=== PATIENT | female | born 1990 ===

== ENCOUNTER 2017-10-19 22:09 | Emergency (ER) | payer MEDICAID ==
[2017-10-19 22:42] VITALS: O2SAT 100
--- NOTE | 2017-10-19 23:26 | ED PDOC ---
HPI: CCC, URI, Sore Throat Time Seen by Provider: 10/19/17 23:04 Chief Complaint (Nursing): Flu-like Symptoms Chief Complaint (Provider): flu-like symptoms History Per: Patient History/Exam Limitations: no limitations Onset/Duration Of Symptoms: Days (2) Current Symptoms Are (Timing): Still Present Associated Symptoms: Fever, Chills, Sore Throat, Myalgias, Nasal Congestion Additional History Per: Patient Additional Complaint(s): 27 y/o female presents with flu-like symptoms since yesterday. Patient reports fever, nasal congestion, sore throat, and bodyaches. Patient took two doses of Theraflu today with little improvement. Denies headache, dizziness, nausea/ vomiting, cough, chest pain, shortness of breath, palpitations, abdominal pain, recent travel. Patient works in [employer] office. Past Medical History Reviewed: Historical Data, Nursing Documentation, Vital Signs Vital Signs: Last Vital Signs Temp 100.7 F H 10/19/17 22:40 Pulse 115 H 10/19/17 22:40 Resp 16 10/19/17 22:40 BP 137/94 H 10/19/17 22:40 Pulse Ox 100 10/19/17 23:26 - Medical History PMH: Asthma - Surgical History Surgical History: No Surg Hx - Family History Family History: States: No Known Family Hx - Immunization History Hx Tetanus Toxoid Vaccination: No Hx Influenza Vaccination: No Hx Pneumococcal Vaccination: No - Home Medications Home Medications: Ambulatory Orders Medication Instructions Recorded Fluticasone Nasal [Flonase] 1 actuation NS BID #1 bottle 10/20/17 Oseltamivir [Tamiflu] 75 mg PO BID #9 cap 10/20/17 - Allergies Allergies/Adverse Reactions: Allergies Allergy/AdvReac Type Severity Reaction Status Date / Time No Known Allergies Allergy Verified 10/19/17 22:40 Review of Systems ROS Statement: Except As Marked, All Systems Reviewed And Found Negative Constitutional: Positive for: Fever, Chills, Weakness ENT: Positive for: Nose Congestion, Throat Pain Physical Exam - Reviewed Nursing Documentation Reviewed: Yes Vital Signs Reviewed: Yes - Physical Exam Appears: Positive for: Well, Non-toxic, No Acute Distress Head Exam: Positive for: ATRAUMATIC, NORMAL INSPECTION, NORMOCEPHALIC Skin: Positive for: Normal Color Eye Exam: Positive for: Normal appearance ENT: Positive for: Nasal Congestion, Pharyngeal Erythema. Negative for: Tonsillar Exudate, Tonsillar Swelling Cardiovascular/Chest: Positive for: Regular Rate, Rhythm Respiratory: Positive for: Normal Breath Sounds Gastrointestinal/Abdominal: Positive for: Normal Exam Back: Positive for: Normal Inspection Extremity: Positive for: Normal ROM Neurologic/Psych: Positive for: Alert, Oriented - ECG O2 Sat by Pulse Oximetry: 100 - Progress ED Course And Treament: flu, strep, ibuprofen Patient educated on findings, discharged with rx Tamiflu (dose given in ED), Flonase Advised Ibuprofen/Tylenol PRN fever. Fluids. Rest. Follow up PMD 2-3 days. Return precautions given. Disposition - Clinical Impression Clinical Impression: Influenza - Patient ED Disposition Is Patient to be Admitted: No Counseled Patient/Family Regarding: Studies Performed, Diagnosis, Need For Followup, Rx Given - Disposition Disposition: Routine/Home Disposition Time: 00:28 Condition: IMPROVED Prescriptions: Fluticasone Nasal [Flonase] 1 actuation NS BID #1 bottle Oseltamivir [Tamiflu] 75 mg PO BID #9 cap Instructions: Influenza (ED) Forms: [facility] (Domin[place]), [facility] ED School/Work Excuse
[2017-10-19 23:54] LABS: SQUAMOUS EPITHIAL 19 /hpf (0-5); URINE BILIRUBIN NEGATIVE (NEGATIVE); URINE BLOOD NEGATIVE (NEGATIVE); URINE CLARITY CLOUDY (Clear); URINE COLOR YELLOW (YELLOW); URINE GLUCOSE (UA) NEG (Normal); URINE LEUKOCYTE ESTERASE MOD Leu/uL (Negative); URINE NITRATE NEGATIVE (NEGATIVE); URINE PROTEIN NEGATIVE (NEGATIVE); URINE UROBILINOGEN 0.2-1.0 mg/dL (0.2-1.0)
[2017-10-20 00:41] VITALS: RESP 20
[2017-10-20 00:46] VITALS: BP 111/60; TEMP 98.3
[2017-10-20 00:49] VITALS: PULSE 96
== END 2017-10-20 00:59 | disposition home or self-care (01) ==
LOC: H.ER 22:09
DX: J11.1 Influenza due to unidentified influenza virus with other respiratory manifestations (principal)